=== PATIENT | male | born 1960 | race Caucasian/White ===

== ENCOUNTER 2022-10-11 16:21 | Outpatient (CLI) | payer OTHER, SELFPAY ==
--- NOTE | ~2022-10-11 | MR_ITS ---
EXAMINATION: MR pelvis wo/w con DATE: 10/11/2022 17:53 INDICATION: Prostate cancer. TECHNIQUE: Magnetic resonance imaging (MRI) of the pelvis was performed without and with 20 mL MultiH ance intravenous contrast. COMPARISON: None. FINDINGS: The prostate is mildly enlarged. There are no pathologically enlarged lymph nodes. There is no free i ntraperitoneal fluid. There is diverticulosis of the colon without evidence of diverticulitis. There is no osseous malignancy. IMPRESSION: 1. Mildly enlarged prostate. No evidence of metastatic disease. Reviewed, dictated and finalized at location A.
== END 2022-10-11 16:22 | disposition home or self-care (01) ==
PROVIDERS: PCP Nurse Practitioner Family; Visit Provider Radiology Radiation Oncology
DX: Z12.5 Encounter for screening for malignant neoplasm of prostate (principal); N40.0 Benign prostatic hyperplasia without lower urinary tract symptoms
CPT/HCPCS: 72197; A9577